=== PATIENT | male | born 1985 | race Hispanic/Latino ===

== ENCOUNTER 2017-07-30 20:18 | Emergency (ER) | payer OTHER | END 2017-07-30 21:23 | disposition home or self-care (01) | LOC: SCSER 20:18 | DX: M54.42 Lumbago with sciatica, left side (principal); F41.9 Anxiety disorder, unspecified; F32.9 Major depressive disorder, single episode, unspecified; Z79.899 Other long term (current) drug therapy | CPT/HCPCS: 99283 ==